=== PATIENT | male | born 1980 | race Caucasian/White ===

== ENCOUNTER 2017-05-17 17:43 | Emergency (ER) | payer MEDICAID ==
[~2017-05-17] VITALS: Ht 167.6 cm; Wt 84.0 kg
[2017-05-17] MEDS ORDERED: BACITRACIN ZINC OINT UDPKT TOP ONE (18:45)
[2017-05-17] MEDS ORDERED: TETANUS, DIPHTHERIA, PERTUSSIS VAC/PF 0.5ML (>7YR OLD) IM ONE (18:45)
[2017-05-17] MEDS ORDERED: ACETAMINOPHEN WITH CODEINE 300/30MG TABLET PO ONE (18:45)
[2017-05-17] MEDS ORDERED: LIDOCAINE HCL 1% 20ML VIAL (Pyxis) INJ MC ONE (18:45)
[2017-05-17 21:14] VITALS: BP 137/77
== END 2017-05-17 21:19 | disposition home or self-care (01) ==
LOC: ER 19:04
DX: S61.211A Laceration without foreign body of left index finger without damage to nail, initial encounter (principal); W26.0XXA Contact with knife, initial encounter; Y93.89 Activity, other specified; Y92.018 Other place in single-family (private) house as the place of occurrence of the external cause
CPT/HCPCS: 12002; 73140; 90471; 90715; 99284; J3490; Z7610; 99285